=== PATIENT | male | born 1960 | race Caucasian/White ===

== ENCOUNTER 2018-01-06 20:08 | Emergency (ER) | payer BC ==
[2018-01-06 20:20] VITALS: BP 160/102
--- NOTE | 2018-01-06 21:34 | EDM.PDOC ---
ED HPI GENERAL MEDICAL PROBLEM - General Chief Complaint: Upper Extremity Injury/Pain Stated Complaint: RIGHT SHOULDER POSSIBLY TORN Time Seen by Provider: 01/06/18 20:49 Source of Information: Reports: Patient History Limitations: Reports: No Limitations - History of Present Illness INITIAL COMMENTS - FREE TEXT/NARRATIVE: The patient states that he has had pain in his right shoulder for the past 3 months. He states that he saw his PCP, Stephen Mercado, last week. X-rays were taken , which were negative, according to the patient. He was prescribed prednisone, which he refused to take, however he did take ibuprofen 400 mg twice a day for 4 days. The plan was that if it did not help, the patient would be referred to Ortho, or for a MRI. The patient states that he reached around behind his back earlier today, and felt a "pop" and heard a tearing sound in his upper right arm. He took 4 ibuprofen, but still has discomfort. It is more painful if he attempts to supinate his forearm, and with flexing his arm at the elbow. He feels better if he extends his right elbow. He denies having any tingling or numbness. Of note, the patient is status post a right rotator cuff repair. Treatments SHORE HAND DREDGE OR BARGE: Reports: Other (see below) Other Treatments SHORE HAND DREDGE OR BARGE: mmotrinin 800mg Right Upper Arm Pain Score (Numeric/FACES): 3 - Related Data Allergies Allergy/AdvReac Type Severity Reaction Status Date / Time amoxicillin Allergy Swelling Verified 07/08/15 15:57 amoxicillin trihydrate Allergy Swelling Verified 07/08/15 15:57 [From Augmentin] Penicillins Allergy Swelling Verified 07/08/15 15:57 potassium clavulanate Allergy Swelling Verified 07/08/15 15:57 [From Augmentin] Home Meds: Home Meds Multivitamin [Daily Multiple Vitamin] 1 tab PO DAILY 07/08/15 [History] Nitroglycerin [Nitrostat] 0.4 mg SL Q5M PRN 07/08/15 [History] Gemfibrozil [Lopid] 600 mg PO BID 10/16/15 [History] Aspirin [Aspirin EC] 81 mg PO DAILY 01/06/18 [History] Past Medical History HEENT History: Reports: Impaired Vision Other HEENT History: wears glasses Cardiovascular History: Reports: CAD, CA Respiratory History: Reports: Sleep Apnea Endocrine/Metabolic History: Reports: Diabetes, Type II (resolved with gastric bypass) Hematologic History: Reports: Anemia, Iron Deficiency - Past Surgical History HEENT Surgical History: Reports: Naso-Sinus Surgery (repair of deviated septum) GI Surgical History: Reports: Bariatric Procedure (Gastric bypass) Musculoskeletal Surgical History: Reports: ORIF (Rt leg), Shoulder Surgery ( right rotator cuff) Social & Family History - Tobacco Use Smoking Status *Q: Current Every Day Smoker Years of Tobacco use: 34 Packs/Tins Daily: 0.5 Packs/Tins Daily Comment: Downd from 1 ppd - Caffeine Use Caffeine Use: Reports: Coffee, Soda, Tea - Alcohol Use Alcohol Use History: No - Recreational Drug Use Recreational Drug Use: No - Living Situation & Occupation Living situation: Reports: , Alone Occupation: Employed ([employer]) Review of Systems - Review of Systems Review Of Systems: ROS reveals no pertinent complaints other than HPI. ED EXAM, GENERAL - Physical Exam Exam: See Below Exam Limited By: No Limitations General Appearance: Alert, WD/WN, No Apparent Distress Extremities: Other (No visible abnormality to the right upper extremity, such as swelling, erythema, ecchymosis, or abrasion. There may be a subtle "Mike" deformity to the right biceps muscle when flexed, and there is tenderness to the mid biceps only; no tenderness to the proximal or distal biceps tendons. Pain is induced in the mid biceps area with attempt at supination against resistance. No pain is induced with attempt at rotation against resistance. Mild pain is induced with attempt at flexion of the elbow against resistance. Muscle strength appears to be preserved. Neurovascular status of the right upper extremity is intact.) Course - Vital Signs Last Recorded V/S: Last Vital Signs Temp 36.6 C 01/06/18 20:19 Pulse 72 01/06/18 20:19 Resp 20 01/06/18 20:19 BP 160/102 H 01/06/18 20:19 Pulse Ox 97 01/06/18 20:19 - Orders/Labs/Meds Orders: Active Orders 24 hr Category Date Time Status DME for Discharge [COMM] Stat Oth 01/06/18 21:30 Ordered - Re-Assessments/Exams Free Text/Narrative Re-Assessment/Exam: 01/06/18 21:31 The patient appears to have ruptured his proximal long head biceps tendon. Case discussed with Dr. Rainey at 21:27. He agrees that the patient likely ruptured his proximal long head biceps tendon. He recommends an arm sling for 4 days, then gentle range of motion. He agrees with the patient following up this coming Monday. He agrees with ibuprofen for pain control. Departure - Departure Time of Disposition: 21:31 Disposition: Home, Self-Care 01 Condition: Fair Clinical Impression: Rupture of right long head biceps tendon - Discharge Information Instructions: Biceps Tendon Disruption (Distal) Rehab-SportsMed Referrals: Stephen Mercado PA-C [Primary Care Provider] - Tanmay Rainey MD [Physician] - Forms: ED Department Discharge Additional Instructions: You were seen in the emergency room for right arm pain, after reaching around behind herself. On examination, you have MOST LIKELY ruptured your proximal long head biceps tendon. You have been placed into an arm sling. Wear this during the day, to allow your arm muscles to relax. After 4 days, you will need to start gentle range of motion. Take [id number] ibuprofen, 2-3 tablets (400-600 mg) every 8 hours, with food, as needed for discomfort. Follow-up with the Orthopedic Surgeon Dr. Rainey this coming 01/08/2018. If any other problems, please do not hesitate to return to the ER. - My Orders Last 24 Hours: My Active Orders 01/06/18 21:30 DME for Discharge [COMM] Stat - Assessment/Plan Last 24 Hours: My Active Orders 01/06/18 21:30 DME for Discharge [COMM] Stat
== END 2018-01-06 21:40 | disposition home or self-care (01) ==
LOC: JD.ED 20:08
DX: S46.111A Strain of muscle, fascia and tendon of long head of biceps, right arm, initial encounter (principal); Z88.1 Allergy status to other antibiotic agents; X58.XXXA Exposure to other specified factors, initial encounter
CPT/HCPCS: 99283

== ENCOUNTER 2019-06-06 07:52 | Day surgery (SDC) | payer BC ==
[~2019-06-06 07:52] MED LIST: FLU Vacc QS2019-20(6MOS+)/PF 60 MCG/0.5 ML SYRINGE IM ONE; Lactated Ringers 1,000 ML IV SCH; Lidocaine 1%/Sod Bicarbonate in NS 8.4% 1 ML Syringe IDERM PRN; Sodium Chloride 0.9% 10 ML Syringe FLUSH PRN
[2019-06-06] MEDS ORDERED: FLU Vacc QS2019-20(6MOS+)/PF 60 MCG/0.5 ML SYRINGE ONE (08:43)
--- NOTE | 2019-06-06 09:09 | PCM.PREANE ---
Preanesthetic Assessment - Anesthesia/Transfusion/Family Hx Anesthesia History: Prior Anesthesia Without Reaction Family History of Anesthesia Reaction: No Transfusion History: No Prior Transfusion(s) - Review of Systems General: No Symptoms Pulmonary: No Symptoms Cardiovascular: No Symptoms Gastrointestinal: No Symptoms Neurological: No Symptoms Other: Reports: None - Physical Assessment NPO Status Date: 06/05/19 NPO Status Time: 22:30 Vital Signs: Last Vital Signs Temp 36.3 C 06/06/19 07:55 Pulse 71 06/06/19 07:55 Resp 20 06/06/19 07:55 BP 143/87 H 06/06/19 07:55 Pulse Ox 94 L 06/06/19 07:55 Height: 1.78 m Weight: 126.552 kg ASA Class: 3 Mental Status: Alert & Oriented x3 Airway Class: Mallampati = 1 Thyro-Mental Finger Breadths: 3 Mouth Opening Finger Breadths: 2 ROM/Head Extension: Full Lungs: Clear to Auscultation, Normal Respiratory Effort Cardiovascular: Regular Rate, Regular Rhythm - Lab Values: Laboratory Last Values POC Glucose 98 mg/dL (70-105) 06/06/19 08:16 - Allergies Allergies/Adverse Reactions: Allergies Allergy/AdvReac Type Severity Reaction Status Date / Time amoxicillin Allergy Swelling Verified 06/05/19 11:49 amoxicillin trihydrate Allergy Swelling Verified 06/05/19 11:49 [From Augmentin] Penicillins Allergy Swelling Verified 06/05/19 11:49 potassium clavulanate Allergy Swelling Verified 06/05/19 11:49 [From Augmentin] promethazine Allergy Drowsiness Verified 06/05/19 11:49 Sulfa (Sulfonamide Allergy Swelling Verified 06/05/19 11:49 Antibiotics) prednisone AdvReac Headache Verified 06/05/19 11:49 Nipoayn-Sef-Mqx Reductase AdvReac Muscle Verified 06/05/19 11:49 Inhibitor Aches - Acknowledgements Anesthesia Type Planned: MAC (pt is at an increased risk due to recent EKG, this has been explained both by anesthesia and MD) Pt an Appropriate Candidate for the Planned Anesthesia: Yes Alternatives and Risks of Anesthesia Discussed w Pt/Guardian: Yes Pt/Guardian Understands and Agrees with Anesthesia Plan: Yes PreAnesthesia Questionnaire HEENT History: Reports: Allergic Rhinitis, Impaired Vision Other HEENT History: wears glasses Cardiovascular History: Reports: CAD, High Cholesterol, Hypertension, MS, Other (See Below) (EKG 06-06-19 SR 57 multiple PVCs ischemia not excluded) Other Cardiovascular History: Peripheral Edema Respiratory History: Reports: SOB, Other (See Below) Other Respiratory History: Sleep apnea resolved when he had gastric bypass Gastrointestinal History: Reports: None Genitourinary History: Reports: Other (See Below) Other Genitourinary History: Renal insufficiency Musculoskeletal History: Reports: Other (See Below) Other Musculoskeletal History: Thumb injury, right shoulder pain Neurological History: Reports: None Psychiatric History: Reports: None Endocrine/Metabolic History: Reports: Diabetes, Type II (BS 98), Vitamin D Deficiency Other Endocrine/Metabolic History: patient had DM prior to gastric bypass [100 lbs. wt. loss] Hematologic History: Reports: Anemia, B12 Deficiency, Iron Deficiency Immunologic History: Reports: None Oncologic (Cancer) History: Reports: None Dermatologic History: Reports: Other (See Below) Other Dermatologic History: History of leg ulcer, cellulitis - Past Surgical History HEENT Surgical History: Reports: None, Naso-Sinus Surgery Cardiovascular Surgical History: Reports: None Respiratory Surgical History: Reports: None GI Surgical History: Reports: Other (See Below) Other GI Surgeries/Procedures: Gastric bypass Male Surgical History: Reports: None Endocrine Surgical History: Reports: None Neurological Surgical History: Reports: None Musculoskeletal Surgical History: Reports: Other (See Below) Other Musculoskeletal Surgeries/Procedures:: ORIF right fibula fracture, right shoulder surgery Oncologic Surgical History: Reports: None Dermatological Surgical History: Reports: None - SUBSTANCE USE Smoking Status *Q: Current Every Day Smoker Tobacco Use Within Last Twelve Months: Cigarettes Second Hand Smoke Exposure: Yes Recreational Drug Use History: No - HOME MEDS Home Medications: Home Meds Nitroglycerin [Nitrostat] 0.4 mg SL Q5M PRN 07/08/15 [History] Dulaglutide [Trulicity] 0.75 mg SQ SA 05/21/19 [History] Furosemide [Lasix] 20 mg PO BID PRN 05/21/19 [History] Potassium Chloride [K-Tab ER] 20 meq PO DAILY 05/21/19 [History] Multivitamin [Multi-Day Vitamins] 1 tab PO DAILY 05/29/19 [History] Aspirin [Halfprin] 81 mg PO DAILY 06/05/19 [History] Cholecalciferol (Vitamin D3) [Vitamin D] 50,000 unit PO SA 06/05/19 [History] Cyanocobalamin (Vitamin B12) [Vitamin B13] 500 mcg PO DAILY 06/05/19 [History] - CURRENT (IN HOUSE) MEDS Current Meds: Current Medications Lactated Ringer's (Ringers, Lactated) 1,000 mls @ 125 mls/hr IV ASDIRECTED MADI Stop: 06/06/19 23:00 Lidocaine/Sodium Bicarbonate (Buffered Lidocaine 1% In Ns 8.4%) 0.25 ml IDERM ONETIME PRN PRN Reason: Prior to IV Start Stop: 06/06/19 23:00 Sodium Chloride (Saline Flush) 10 ml FLUSH ASDIRECTED PRN PRN Reason: Keep Vein Open Stop: 06/06/19 23:00 Discontinued Medications Influenza Virus Vaccine (Fluzone Quad Syringe) 60 mcg IM .ONCE ONE Stop: 06/05/19 12:01 Influenza Virus Vaccine (Fluzone Quad Syringe) Confirm Administered Dose 60 mcg .ROUTE .STK-MED ONE Stop: 06/06/19 08:44
[2019-06-06] MEDS ORDERED: Midazolam 1 MG/ML 2 ML SDV ONE (09:12)
[2019-06-06] MEDS ORDERED: Lidocaine 1% 4 ML ONE (09:14)
[2019-06-06] MEDS ORDERED: Propofol 200 MG/20 ML SDV ONE (09:15)
--- NOTE | 2019-06-06 09:54 | PCM48HPAN ---
Post Anesthesia Note - EVALUATION WITHIN 48HRS OF ANESTHETIC Vital Signs in Normal Range: Yes Patient Participated in Evaluation: Yes Respiratory Function Stable: Yes Airway Patent: Yes Cardiovascular Function Stable: Yes Hydration Status Stable: Yes Pain Control Satisfactory: Yes Nausea and Vomiting Control Satisfactory: Yes Mental Status Recovered: Yes Vital Signs: Last Vital Signs Temp 36.3 C 06/06/19 07:55 Pulse 71 06/06/19 07:55 Resp 20 06/06/19 07:55 BP 143/87 H 06/06/19 07:55 Pulse Ox 94 L 06/06/19 07:55
--- NOTE | 2019-06-06 09:56 | PCM.PRNOTE ---
- Free Text/Narrative Note: Date: 06/06/2019 Endoscopist: Elmer Mead MD Procedure: screening colonoscopy Findings: mild diverticular disease scattered throughout distal colon. Two subcentimeter sessile rectal polyps biopsied with cold forceps. Prep was fair. Ascending colon reached. Detailed report: Time out was performed, and the patient was positioned in the left lateral decubitus position. Adequate sedation was achieved, and the anus was inspected and digital rectal exam performed with no abnormalities noted. The colonoscope was inserted and advanced with ease to the ascending colon. Prep was fair. Diverticular disease was noted. A hypervascular subcentimeter polyp noted in the proximal rectum was biopsied with cold forceps (the entire lesion was removed), and a small hyperpigmented raised lesion in the distal colon seen on retroflexion was also biopsied and completely removed with cold forceps. The patient tolerated the procedure well; no complications noted. Elmer Mead MD General Surgery
[2019-06-06 10:30] VITALS: BP 119/71; PULSE 65
== END 2019-06-06 10:25 | disposition home or self-care (01) ==
LOC: JD.SDS 07:52
PROVIDERS: ATTEND Surgery
DX: Z12.11 Encounter for screening for malignant neoplasm of colon (principal); D12.8 Benign neoplasm of rectum; K62.1 Rectal polyp; K57.30 Diverticulosis of large intestine without perforation or abscess without bleeding; D50.9 Iron deficiency anemia, unspecified; I10 Essential (primary) hypertension; I25.10 Atherosclerotic heart disease of native coronary artery without angina pectoris; I25.2 Old myocardial infarction; E78.00 Pure hypercholesterolemia, unspecified; E11.9 Type 2 diabetes mellitus without complications; E55.9 Vitamin D deficiency, unspecified; F17.210 Nicotine dependence, cigarettes, uncomplicated; G47.30 Sleep apnea, unspecified; Z88.0 Allergy status to penicillin; Z88.2 Allergy status to sulfonamides; Z88.8 Allergy status to other drugs, medicaments and biological substances; Z23 Encounter for immunization; Z79.82 Long term (current) use of aspirin; Z79.899 Other long term (current) drug therapy
CPT/HCPCS: 45380; 82962; 90686; J2001; J2250; J2704; J7120; 00811

== ENCOUNTER 2020-08-19 17:41 | Emergency (ER) | payer BC ==
[2020-08-19 18:07] VITALS: BP 159/102; PULSE 80
--- NOTE | 2020-08-19 18:16 | EDM.PDOC ---
ED HPI GENERAL MEDICAL PROBLEM - General Chief Complaint: General Stated Complaint: TAILBONE INJURY Time Seen by Provider: 08/19/20 18:11 Source of Information: Reports: Patient History Limitations: Reports: No Limitations - History of Present Illness INITIAL COMMENTS - FREE TEXT/NARRATIVE: 60-year-old male presents to the ED for evaluation of pain in the right buttock sacrum and coccyx area. Patient states that about 1:00 this morning he had gotten up to the bathroom and was going back up the style stairway and missed the top step. This caused him to fell backwards going somersault down the stairwell of about 12 stairs. He had some mild injury to his left lateral neck both knees left upper shoulder and persistent pain primarily in his right lower back over the coccyx and sacral area. He came to the ED primarily because of problems sitting in pain to get up and walk in his posterior pelvis in the distribution of the distal sacrum and coccyx. Onset: Today, Sudden Onset Date: 08/19/20 Onset Time: 01:00 Duration: Hour(s):, Getting Worse Location: Reports: Other (Primary injury blunt trauma from a fall to the sacrum and coccyx area.) Quality: Reports: Ache, Throbbing Severity: Moderate Improves with: Reports: Rest Worsens with: Reports: Other Context: Reports: Trauma (Fell down a flight of about 12 stairs backwards in a somersault fashion early this morning). Denies: Activity, Exercise, Lifting, Sick Contact Associated Symptoms: Reports: Other (Mild pain left lateral neck but has full range of motion. Contusion left posterior shoulder and left buttock cheek and both knees suffered abrasions and contusions) Treatments GROUP UNDERWRITER: Reports: Acetaminophen, Other (see below) Sacral Pain Score (Numeric/FACES): 8 - Related Data Allergies Allergy/AdvReac Type Severity Reaction Status Date / Time amoxicillin Allergy Severe Swelling Verified 08/19/20 18:08 amoxicillin trihydrate Allergy Severe Swelling Verified 08/19/20 18:08 [From Augmentin] Penicillins Allergy Severe Swelling Verified 08/19/20 18:08 potassium clavulanate Allergy Severe Swelling Verified 08/19/20 18:08 [From Augmentin] Sulfa (Sulfonamide Allergy Severe Swelling Verified 08/19/20 18:08 Antibiotics) prednisone AdvReac Severe Headache Verified 08/19/20 18:08 promethazine AdvReac Severe Drowsiness Verified 08/19/20 18:08 [id number] Reductase AdvReac Severe Muscle Verified 08/19/20 18:08 Inhibitor Aches Home Meds: Home Meds Nitroglycerin [Nitrostat] 0.4 mg SL Q5M PRN 07/08/15 [History] Dulaglutide [Trulicity] 0.75 mg SQ SA 05/21/19 [History] Multivitamin [Multi-Day Vitamins] 1 tab PO DAILY 05/29/19 [History] Aspirin [Halfprin] 81 mg PO DAILY 06/05/19 [History] Past Medical History HEENT History: Reports: Allergic Rhinitis, Impaired Vision Other HEENT History: wears glasses Cardiovascular History: Reports: CAD, High Cholesterol, Hypertension, SD, Other (See Below) Other Cardiovascular History: Peripheral Edema Respiratory History: Reports: SOB, Other (See Below) Other Respiratory History: Sleep apnea resolved when he had gastric bypass Gastrointestinal History: Reports: None Genitourinary History: Reports: Other (See Below) Other Genitourinary History: Renal insufficiency Musculoskeletal History: Reports: Fracture, Other (See Below) Other Musculoskeletal History: Thumb injury, right shoulder pain Neurological History: Reports: None Psychiatric History: Reports: None Endocrine/Metabolic History: Reports: Diabetes, Type II (Controlled currently with Trulicity), Obesity/BMI 30+, Vitamin D Deficiency Other Endocrine/Metabolic History: patient had DM prior to gastric bypass [100 lbs. wt. loss] Hematologic History: Reports: Anemia, B12 Deficiency, Iron Deficiency Immunologic History: Reports: None Oncologic (Cancer) History: Reports: None Dermatologic History: Reports: Other (See Below) Other Dermatologic History: History of leg ulcer, cellulitis - Past Surgical History HEENT Surgical History: Reports: None, Naso-Sinus Surgery Other Cardiovascular Surgeries/Procedures: angiogram GI Surgical History: Reports: Other (See Below) Other GI Surgeries/Procedures: Gastric bypass Musculoskeletal Surgical History: Reports: Other (See Below) Other Musculoskeletal Surgeries/Procedures:: ORIF right fibula fracture, right shoulder surgery Social & Family History - Tobacco Use Tobacco Use Status *Q: Current Every Day Tobacco User Years of Tobacco use: 42 Packs/Tins Daily: 0.3 - Caffeine Use Caffeine Use: Reports: Coffee - Recreational Drug Use Recreational Drug Use: No - Living Situation & Occupation Living situation: Reports: , Alone Occupation: Employed ([employer]) ED ROS GENERAL - Review of Systems Review Of Systems: See Below Constitutional: Denies: Fever, Chills, Malaise, Weakness, Decreased Appetite, Weight Loss HEENT: Reports: No Symptoms Respiratory: Reports: No Symptoms Cardiovascular: Reports: Blood Pressure Problem, Dyspnea on Exertion, Other (Past history of myocardial infarction.). Denies: Claudication, Edema, Lightheadedness, Orthopnea, Palpitations Endocrine: Reports: No Symptoms GI/Abdominal: Reports: Other : Reports: Frequency, Other Musculoskeletal: Reports: Neck Pain, Shoulder Pain, Back Pain, Joint Pain (Nocturia x2 sometimes 3. Known BPH.) Skin: Reports: No Symptoms Neurological: Reports: No Symptoms Psychiatric: Reports: No Symptoms Hematologic/Lymphatic: Reports: No Symptoms Immunologic: Reports: No Symptoms ED EXAM, GENERAL - Physical Exam Exam: See Below Exam Limited By: No Limitations General Appearance: Alert, WD/WN, No Apparent Distress, Other (Temperature is 36.9 with a heart rate of 80 in sinus respiratory is 18 with O2 sats of 97% room air BP elevated 159 102.) Eye Exam: Bilateral Eye: Normal Inspection, PERRL Nose: Normal Inspection Throat/Mouth: Normal Inspection, Normal Lips, Other Head: Atraumatic, Normocephalic (No injury to the tongue or dentition.) Neck: Normal Inspection, Tender Lateral (In her left lateral lower neck). No: Carotid Bruit, Lymphadenopathy (L) ( but he has full unopposed range of motion. Appears to be muscular in origin.), Lymphadenopathy (R), Thyromegaly Respiratory/Chest: No Respiratory Distress, Lungs Clear, Normal Breath Sounds, No Accessory Muscle Use, Decreased Breath Sounds (Sounds are diminished to both posterior lung kohli due to his large size.) Cardiovascular: Regular Rate, Rhythm, No Edema, No Gallop, No Murmur, No Rub. No: Normal Peripheral Pulses Peripheral Pulses: 2+: Posterior Tibial (L), Posterior Tibial (R), Dorsalis Pedis (L), Dorsalis Pedis (R) GI/Abdominal: Normal Bowel Sounds, Soft, Non-Tender, No Organomegaly, No Mass, Pelvis Stable, Other (Moderately obese. No evidence of abdominal wall contusion or injury. Abdominal girth limits ability to palpate solid organs.) Back Exam: Normal Inspection, Full Range of Motion, Other (Examination reveals tenderness along the distal sacrum and coccyx.). No: CVA Tenderness (L), CVA Tenderness (R) Extremities: Normal Inspection, Normal Range of Motion, Non-Tender, Pedal Edema (1-2+ pitting edema up to), Other (And has an abrasion over his left posterior shoulder blade area which is not bothering him. There is also a bruise forming over the superior left buttock area. Patient has abrasions contusions to both knees) Neurological: Alert ( distal tib-fib bilaterally.), Oriented, CN II-XII Intact, Normal Cognition Psychiatric: Normal Affect, Normal Mood Skin Exam: Warm, Dry, Normal Color, Other (Lesions both anterior knees.) Course - Vital Signs Last Recorded V/S: Last Vital Signs Temp 36.9 C 08/19/20 18:04 Pulse 80 08/19/20 18:04 Resp 18 08/19/20 18:04 BP 159/102 H 08/19/20 18:04 Pulse Ox 97 08/19/20 18:04 - Radiology Interpretation Free Text/Narrative:: 60-year-old male presents to the ED for evaluation of injury sustained from fall down a flight of stairs at 0100 hrs. this morning. States he missed the top stair which propelled him backwards in a somersault fashion down a flight of thinly covered wooden stairs. Patient did not lose consciousness. He does not believe he hurt his head. He has some mild pain on examination left lateral lower neck but full range of motion with no clinical evidence of a fracture. He has abrasions over his left upper shoulder posteriorly which he was not aware of. He has some bruising coming up over these superior aspect of his left buttock. Pain over the sacrum and coccyx particular the distal aspect of the sacrum. Abrasions to both knees. Plan he will have CT of the pelvis performed to make sure there is no significant fracture in the sacrum /coccyx area. - Re-Assessments/Exams Free Text/Narrative Re-Assessment/Exam: 08/19/20 19:07 CT of the pelvis is within normal limits including good visualization of the sacrum and coccyx. No fractures are identified or displacement. Terri phenomena is noted within both sacroiliac joints. Vacuum phenomena is also noted within the left L5-S1 apophyseal joint. There is a cystic change being seen within the pubic symphysis which is incidental. Joint space within the right hip is slightly narrowed. No fractures are identified. Conservative Rx. Patient advised to use Motrin 600 mg every 6 hours as needed. Advised to purchase a donut pad from [employer] which would help a lot with sitting over the next couple of weeks. Patient reassured this injury will likely take a good 2 to 3 weeks to settle down. Departure - Departure Time of Disposition: 19:15 Disposition: Home, Self-Care 01 Condition: Fair Clinical Impression: Fall down stairs Qualifiers: Encounter type: initial encounter Qualified Code(s): W10.8XXA - Fall (on) (from) other stairs and steps, initial encounter Contusion of sacral region Qualifiers: Encounter type: initial encounter Qualified Code(s): S30.0XXA - Contusion of lower back and pelvis, initial encounter - Discharge Information *PRESCRIPTION DRUG MONITORING PROGRAM REVIEWED*: Not Applicable *COPY OF PRESCRIPTION DRUG MONITORING REPORT IN PATIENT UZAIR: Not Applicable Instructions: Contusion, [id number], Tailbone Injury, [id number] Referrals: Michelle Castorena SQL DEVELOPER [Primary Care Provider] - Forms: ED Department Discharge Additional Instructions: Evaluation in the emergency room today in regards to injuries sustained from a fall backwards down a stairwell early this morning. You have suffered a strain to the muscles and ligaments of the left side of your lower neck without clinical evidence of any bony injury. There is a contusion and abrasion to your posterior left upper shoulder. A bruises developing over the superior buttock on the left side. Contusion primarily to the lower portion of the sacrum and tailbone area on the right side. CT scan of the pelvis does not reveal any broken bones or displacement of the tailbone or sacrum which is in the mid sect ion of the pelvis. You have suffered bone bruise similar to being kicked in the gutierrez with a steel toed boot. It will be very tender to sit for the next 2 to 3 weeks. Suggest Motrin 600 mg every 6 hours as needed for pain relief. Ice pack could be used to the area for up to 48 hours after injury 1/2-hour out of every 4 hours. After this may apply heat to the area. Expect gradual improvement o socrates the next 3 weeks. Sepsis Event Note (ED) - Evaluation Sepsis Screening Result: No Definite Risk - Focused Exam Vital Signs: Vital Signs Temp Pulse Resp BP Pulse Ox 08/19/20 18:04 36.9 C 80 18 159/102 H 97
--- NOTE | 2020-08-19 18:50 | CT ---
CT pelvis Technique: Multiple axial, sagittal and coronal images were obtained through the pelvis. Study has been performed as a bone algorithm exam. Comparison: No prior pelvis exam is available. Findings: Vacuum phenomena is noted within both sacroiliac joints. Vacuum phenomena is noted within the left L5-S1 apophyseal joint. There is cystic change being seen within the pubic symphysis which is incidental. Joint space within the right hip is slightly narrowed. No fracture is appreciated. Vascular calcification is noted. No intrapelvic abnormality is appreciated. Impression: 1. Mild degenerative change as noted above. 2. Nothing acute is appreciated on CT study of the pelvis. Diagnostic code #2
== END 2020-08-19 19:24 | disposition home or self-care (01) ==
LOC: JD.ED 17:41
DX: S30.0XXA Contusion of lower back and pelvis, initial encounter (principal); S40.212A Abrasion of left shoulder, initial encounter; M25.562 Pain in left knee; M25.561 Pain in right knee; I10 Essential (primary) hypertension; I25.2 Old myocardial infarction; I25.10 Atherosclerotic heart disease of native coronary artery without angina pectoris; E11.9 Type 2 diabetes mellitus without complications; E66.9 Obesity, unspecified; Z72.0 Tobacco use; Z88.1 Allergy status to other antibiotic agents; Z88.0 Allergy status to penicillin; Z88.2 Allergy status to sulfonamides; Z88.8 Allergy status to other drugs, medicaments and biological substances; Z79.82 Long term (current) use of aspirin; Z68.36 Body mass index [BMI] 36.0-36.9, adult; W10.9XXA Fall (on) (from) unspecified stairs and steps, initial encounter
CPT/HCPCS: 72192; 72192-26; 99282; 99284-25

== ENCOUNTER 2022-02-08 21:41 | Emergency (ER) | payer BC ==
[2022-02-08 22:00] VITALS: BP 135/97; PULSE 59
[2022-02-08] MEDS ORDERED: Famotidine 20 MG Tab PO ONE (22:19)
[2022-02-08] MEDS ORDERED: diphenhydrAMINE 25 MG Cap PO ONE (22:19)
== END 2022-02-08 23:44 | disposition home or self-care (01) ==
LOC: JD.ED 21:41
DX: S60.561A Insect bite (nonvenomous) of right hand, initial encounter (principal); F17.210 Nicotine dependence, cigarettes, uncomplicated; W57.XXXA Bitten or stung by nonvenomous insect and other nonvenomous arthropods, initial encounter
CPT/HCPCS: 99283; A9270

== ENCOUNTER 2022-09-29 09:47 | Day surgery (SDC) | payer BC ==
[~2022-09-29 09:47] MED LIST changes: +Acetaminophen 325 MG Tab PO SCH; -FLU Vacc QS2019-20(6MOS+)/PF 60 MCG/0.5 ML SYRINGE IM ONE; +Pregabalin 25 MG Cap PO SCH; +Sodium Chloride 0.9% 10 ML Syringe FLUSH SCH; +Tranexamic Acid 1,000 MG/10 ML Vial ONE; +VANCOmycin 2 GM/400 ML 2 GM in Premix Bag 1 BAG IV SCH; +Vancomycin 1 GM SDV ONE; +oxyCODONE ER 10 MG TAB.ER PO SCH
[2022-09-29] MEDS ORDERED: Midazolam 1 MG/ML 2 ML SDV ONE (10:32)
[2022-09-29] MEDS ORDERED: Propofol 200 MG/20 ML SDV ONE (10:32)
[2022-09-29] MEDS ORDERED: Ondansetron 4 MG/2 ML SDV ONE (10:32)
[2022-09-29] MEDS ORDERED: Ketorolac 30 MG/ML SDV ONE (10:32)
[2022-09-29] MEDS ORDERED: Rocuronium 50 MG/5 ML Vial ONE (10:32)
[2022-09-29] MEDS ORDERED: fentaNYL 100 MCG/2 ML SDV ONE (10:32)
[2022-09-29] MEDS ORDERED: Lidocaine 1% 2 ML ONE (10:33)
[2022-09-29] MEDS ORDERED: Ropivacaine 0.5% 5 MG/ML 30 ML SDV ONE (10:39)
[2022-09-29] MEDS ORDERED: EPINEPHrine 1 MG/ML SDV ONE (10:39)
[2022-09-29] MEDS ORDERED: Ondansetron 4 MG/2 ML SDV IVPUSH PRN (11:11)
[2022-09-29] MEDS ORDERED: HYDROmorphone 0.5 MG/0.5 ML Syringe IVPUSH PRN (11:11)
[2022-09-29] MEDS ORDERED: fentaNYL 100 MCG/2 ML SDV IVPUSH PRN (11:11)
[2022-09-29] MEDS ORDERED: Etomidate 2 MG/ML 20 ML SDV IVPUSH ONE (11:27)
[2022-09-29] MEDS ORDERED: Lidocaine 2% 100 MG/5 ML Syringe ONE (11:40)
[2022-09-29] MEDS ORDERED: Sugammadex Sodium 200 MG/2 ML VIAL ONE (12:19)
[2022-09-29] MEDS ORDERED: oxyCODONE 5 MG Tab PO SCH (14:15)
[2022-09-29 16:07] VITALS: BP 130/80; PULSE 72
== END 2022-09-29 15:37 | disposition home or self-care (01) ==
LOC: JD.SDS 09:47
PROVIDERS: ATTEND Orthopaedic Surgery
DX: M19.012 Primary osteoarthritis, left shoulder (principal); I25.10 Atherosclerotic heart disease of native coronary artery without angina pectoris; E11.9 Type 2 diabetes mellitus without complications; I50.20 Unspecified systolic (congestive) heart failure; F17.210 Nicotine dependence, cigarettes, uncomplicated; Z88.0 Allergy status to penicillin; Z88.1 Allergy status to other antibiotic agents; Z88.8 Allergy status to other drugs, medicaments and biological substances; Z88.2 Allergy status to sulfonamides; Z79.899 Other long term (current) drug therapy
CPT/HCPCS: 01638; 64415; 76000; 76000-26; 97110-GP; 97161-GP; A9270-GY; C1713; C1776; J0171; J1885; J2250; J2405; J2704; J2795; J3010; J3370; J3490; J7120

== ENCOUNTER 2024-02-13 06:42 | Day surgery (SDC) | payer BC ==
[~2024-02-13 06:42] MED LIST changes: -Acetaminophen 325 MG Tab PO SCH; -Lactated Ringers 1,000 ML IV SCH; -Lidocaine 1%/Sod Bicarbonate in NS 8.4% 1 ML Syringe IDERM PRN; -Pregabalin 25 MG Cap PO SCH; -Tranexamic Acid 1,000 MG/10 ML Vial ONE; -VANCOmycin 2 GM/400 ML 2 GM in Premix Bag 1 BAG IV SCH; -Vancomycin 1 GM SDV ONE; -oxyCODONE ER 10 MG TAB.ER PO SCH
[2024-02-13] MEDS: Lactated Ringers 1,000 ML IV SCH (07:00)
[2024-02-13] MEDS ORDERED: Propofol 200 MG/20 ML SDV ONE (07:19)
[2024-02-13] MEDS ORDERED: ePHEDrine 50 MG/ML SDV ONE (07:42)
[2024-02-13 08:54] VITALS: BP 125/70; PULSE 64
== END 2024-02-13 08:37 | disposition home or self-care (01) ==
LOC: JD.SDS 06:42
PROVIDERS: ATTEND Surgery
DX: Z12.11 Encounter for screening for malignant neoplasm of colon (principal); K57.30 Diverticulosis of large intestine without perforation or abscess without bleeding; I10 Essential (primary) hypertension; E11.9 Type 2 diabetes mellitus without complications; E78.00 Pure hypercholesterolemia, unspecified; I25.10 Atherosclerotic heart disease of native coronary artery without angina pectoris; Z86.010 Personal history of colon polyps; Z79.82 Long term (current) use of aspirin; Z79.899 Other long term (current) drug therapy; Z88.0 Allergy status to penicillin; Z88.2 Allergy status to sulfonamides
CPT/HCPCS: 45378; J2704; J7120; J3490